=== PATIENT | female | born 1955 | race Caucasian/White ===

== ENCOUNTER 2018-02-20 16:13 | Emergency (ER) | payer SELFPAY ==
[2018-02-20 16:15] VITALS: BP 135/81; PULSE 84; RESP 16; TEMP 36.7; BMI 40.9
--- NOTE | 2018-02-20 16:42 | ED.DCSUM_ITS ---
History of Present Illness Chief Complaint: Upper Extremity Injury Informant: Patient Narrative: Patient was in [place] 2 days ago, and a store where she slipped and fell onto right outstretched hand, fracturing her wrist at the distal radius apparently. She was seen at a local ER and told that, and splinted. She states for the past day or so, she has been getting burning in the skin upper forearm where the splint is applied, and pins and needles sensation there, however where her fingers are, which are not splinted, she has no symptoms or tingling. The wrist area where the fracture is, she has been having a lot of pain there despite taking the [place] that they prescribed her, she states it does not seem to be helping. She has been in a sling as well. No fevers, bleeding, other injuries. She states that when the splint was put on, the fiberglass was soaked under water prior to application. Past Medical History - Allergies and Home Meds Allergies/Adverse Reactions: Allergies No Known Allergies Allergy (Verified 12/14/13 08:08) Primary Care Physician: Rosalio Somers MD [Primary Care Provider] - Lives: Spouse/ Significant Other Smoking Status: Former smoker Review of Systems All systems negative except as indicated Musculoskeletal: Reports: Extremity Pain Neurological: Reports: Parasthesia Physical Exam Vital Signs/Narrative: Vital Signs Temp Pulse Resp BP 02/20/18 16:15 98.0 F 84 16 135/81 H Inital Vital Signs reviewed: Yes General: Well nourished, Well developed, - - nad Head: Normocephalic, Atraumatic Cardiovascular: - - 2+/4 radial pulses bilaterally Extremities: Tenderness - right wrist, mostly at distal radius w/ swelling and bruising., - - All right upper extremity compartments soft. Splint was taken down, it was a sugar tong forearm splint immobilized at the elbow, with a thick layer of [place]-like padding against the skin. Full range of motion at the elbow without difficulty. Skin: Normal color, No rash, - - No evidence of any skin opening near the fracture site, which is likely the distal radius, no evidence of any skin breakdown throughout the right upper extremity. Neurological: Alert, Oriented x3, Cranial nerves II-XII grossly intact, Normal Strength, Normal Sensation, Normal Gait Psychological: Normal affect Diagnostic/Tx/Re-eval Clinical Impression(s) from Imaging Studies Wrist X-Ray 02/20/18 16:47 IMPRESSION: Distal radial fracture as described. Electronically Signed: Chester Mcdaniels MD at 17:36 EDT , Service support , - Medical Decision Making Patient had no report or discs with imaging, so I obtained our own x-rays which do show what appears to be a nondisplaced distal radius fracture that is not intra-articular. After removing the splint and leaving it off for a while, her symptoms resolved although she was still having fracture site pain. She was given oxycodone, this helped a lot. She is asking for some of that which I think is reasonable. I placed a new splint, she said it was much more comfortable. I do not think she needs a sugar tong or elbow mobilization, she is not able to pronate or supinate with a short arm splint, she can use the sling as needed. Given orthopedic follow-up. Procedures - Upper Extremity Splints Upper Extremity Splint: Orthoglass, - - AP short arm wrist Splint Fabrication: Fabricated Location: Right - Neurovascularly intact distally after placement ED Disposition - Plan for ED Patient: Disposition: Home or Assisted Living Chief Complaint: Upper Extremity Injury Diagnosis: Nondisplaced fracture of distal end of right radius Instructions: ED Fx Wrist General Prescriptions: Oxycodone HCl/Acetaminophen [Percocet 5/325] 1 tab PO Q6H PRN PRN 3 Days #12 tab PRN Reason: Pain Referrals: Rosalio Somers MD [Primary Care Provider] - Cristopher Samuel MD [STAFF PHYSICIAN] - (call for appt on thursday to be seen this coming week)
[2018-02-20] MEDS: oxyCODONE 5 MG Tablet 10 MG PO (16:45)
--- NOTE | 2018-02-20 16:47 | RAD_ITS ---
STUDY: X-RAY - RIGHT WRIST REASON FOR EXAM: Female, 62 years old. History of fall. Pain. Known radial fracture. TECHNIQUE: 3 view(s) of the wrist were obtained. COMPARISON: None. FINDINGS: There is a nondisplaced transverse fracture of the distal radius extending through the base of the radial styloid with intra-articular extension. Normal radiocarpal articulation. Normal distal radioulnar articulation. Normal carpal bones. Normal carpal articulations. Normal carpometacarpal articulation of the thumb. Normal second through fifth carpometacarpal articulations. Normal visualized metacarpal bones. The soft tissue structures are unremarkable. RAD/Wrist min 3 Views IMPRESSION: Distal radial fracture as described. Electronically Signed: Chester Mcdaniels MD at 17:36 EDT , Service support ,
[2018-02-20 18:26] VITALS: BP 127/82; PULSE 85; RESP 14; O2SAT 95
== END 2018-02-20 18:27 | disposition home or self-care (01) ==
PROVIDERS: Emergency Provider Emergency Medicine; Family Provider Family Medicine; PCP Family Medicine
DX: S52.501D Unspecified fracture of the lower end of right radius, subsequent encounter for closed fracture with routine healing (principal); W01.10XD Fall on same level from slipping, tripping and stumbling with subsequent striking against unspecified object, subsequent encounter
CPT/HCPCS: 29125; 73110; 99283